=== PATIENT | female | born 1940 | race Caucasian/White ===

== ENCOUNTER 2023-09-18 13:31 | Inpatient (IN) | payer MEDICARE, OTHER, SELFPAY ==
[2023-09-18] VITALS (13 sets, daily range): BP systolic 107–171; BP diastolic 50–72; BMI 25.8
--- NOTE | 2023-09-18 08:38 | W.PN.CARDCBS ---
Addendum entered and electronically signed by Agustín Mueller MD 09/18/23 12:07:
Patient seen and examined
Agree with ELECTRONIC SCALE SUBASSEMBLER note and assessment
Agree with ELECTRONIC SCALE SUBASSEMBLER plan
Since our office visit when she was in rapid atrial fibrillation she is subsequently converted to sinus rhythm on amiodarone therapy as well as bisoprolol therapy and subsequently presented to the [facility] ER with symptomatic bradycardia
with heart rates in the 30s to 40s. We held her amiodarone and bisoprolol and she is continued symptomatic sick sinus syndrome. She was transferred from [facility] for evaluation for a pacemaker. I met with her and her discussing
a warrant of thousand risk of and a 1% risk of pneumothorax, tamponade, infection or bleeding. She is agreeable to proceed and understands that we will postpone her pulmonary vein isolation and place her back on amiodarone therapy and can
follow her clinical course for at least 3 months while her leads heal in.
Examination:
Physical Exam
General: no apparent distress, not acutely ill
Neck: supple. no meningeal signs. normal psoterior pharynx
Heart: s1/s2 regular rate and rhythm, no murmur. equal radial pulses.
Lungs: no acute respiratory distress. clear bilaterally
Abdomen: normal bowel sounds. not tender. no CVAT
Neuro: alert and oriented. no focal neurological deficits
Skin: no rash
Psychiatric: well kept. interactive and cooperative
Extremities: no edema. no calf tenderness. negative homans. good distal pulses
PCP: Diana Sinclair DO
CDY: Luis Alfredo Garcia MD
82 yo WF h/o persistent Afib/Aflutter, moderate MR, HTN, COPD former smoker, CHAD does not tolerate CPAP. She was evaluated by Dr. Mueller 08/09 for ablation vs PPM/AVJ, she had previously failed sotalol (prolonged QTc) and switched to amiodarone with
two failed cardioversions. She chose rhythm management and was scheduled for PFA/PVI in September. She presented to [facility] ER with dizziness, LH and weak, HR sinus in the 30's. She is being transferred today for PPM for tachy-danyelle syndrome.
Impression:
Symptomatic tachycardia-bradycardia syndrome
Bradycardia
Persistent Afib/Aflutter
HTN
HLD
COPD
mild CHAD does not tolerate CPAP
Moderate MR
Breast cancer s/p left mastectomy
former smoker quit 2003
Plan:
Proceed to pacemaker placement
[id number] =4
Currently in SR HR 50's
BP elevated possibly d/t bradycardia, will trend after procedure, continue amlodipine, HCTZ
After PPM will Resume Amiodarone, and bisoprolol
Resume OAC when pocket stable
Plan for now will be medical management, if recurrence of afib will discuss AVJ vs PVI at least 4 weeks from device implant
Inc check at [facility]
continue cardiac care Dr. Garcia
monitor on tele 24 hrs
Original Note:
Today's Communication / Plan
-
PPM today
Impression / Plan
-
This is a summary, see scanned H&P
PCP: Diana Sinclair DO
CDY: Luis Alfredo Garcia MD
82 yo WF h/o persistent Afib/Aflutter, moderate MR, HTN, COPD former smoker, CHAD does not tolerate CPAP. She was evaluated by Dr. Mueller 08/09 for ablation vs PPM/AVJ, she had previously failed sotalol (prolonged QTc) and switched to amiodarone with
two failed cardioversions. She chose rhythm management and was scheduled for PFA/PVI in September. She presented to [facility] ER with dizziness, LH and weak, HR sinus in the 30's. She is being transferred today for PPM for tachy-danyelle syndrome.
Impression:
Symptomatic tachycardia-bradycardia syndrome
Bradycardia
Persistent Afib/Aflutter
HTN
HLD
COPD
mild CHAD does not tolerate CPAP
Moderate MR
Breast cancer s/p left mastectomy
former smoker quit 2003
Plan:
Admit to IVU post PPM
CXR and post op abx
[id number] =4
Currently in SR HR 50's
BP elevated possibly d/t bradycardia, will trend after procedure, continue amlodipine, HCTZ
After PPM will Resume Amiodarone, and bisoprolol
Resume OAC when pocket stable
Plan for now will be medical management, if recurrence of afib will discuss AVJ vs PVI at least 4 weeks from device implant
Inc check at [facility]
continue cardiac care Dr. Garcia
monitor on tele 24 hrs
Progress Note - Dairy Truck Driver
Subjective
Date of Service: September 18, 2023
mild LH, no cp, sob
Physical Exam
Physical Exam
NAD< AOX3
S1, S2, RRR, I/ holosystolic murmur at apex
CTAB, non labored
SNTND BSx4
No LE edema
[2023-09-18] MEDS: NSS 500 IV (09:58)
--- NOTE | 2023-09-18 13:55 | ITS.CL.PACE ---
Water Treatment Technician - Pacemaker Implant
Pacemaker Implant
Procedure Report:
Date of Procedure: September 18, 2023
Patient : 1940
Procedure: Pacemaker Implantation.
Indication: Symptomatic sick sinus syndrome
Referring: Dr. Luis Alfredo Garcia MD
Implants:
Pulse Generator: Medtronic; Model# W1 DR 01; SN: [id number]
RA Lead: Medtronic; Model# 4574; SN: [id number]
RV Lead: Medtronic; Model# 4074; SN: [id number]
Technique: A time out was performed. The procedure site was identified. The patient was anesthetized by the anesthesia service. The patient was prepped and draped in the usual fashion. Local anesthetic was applied to the left prepectoral
subcutaneous tissue. A 3 inch incision was made 2.5 inches below the left clavicle. A subcutaneous pocket was created with blunt and sharp dissection and hemostasis controlled with Bovie cautery. The left axillary vein was accessed within the pocket
without difficulty. Hemostasis was excellent. The leads were introduced with 7 Fr hemostatic peel away introducer sheaths. The ventricular lead was placed at the right ventricular apex. The atrial lead was placed
in the right atrial appendage. 10 volt pacing did not capture the diaphragm. The leads were secured to the pectoralis muscle and fascia. The leads were appropriately attached to the device. The pocket was irrigated with antibiotic solution. The
device and leads were placed in the pocket. The incision was closed in three layers with absorbable suture. The estimated blood loss was minimal. There were no complications.
Fluoroscopy: 2.4 minutes and 12 mGy
Lead Analysis:
RA lead: P: 2.1 mV; Threshold: 0.375 V @ 0.5 ms; Impedance: 680 ohms.
RV lead: R: 6 mV; Threshold: 0.4 V @ 0.5 ms; Impedance: 1070 ohms.
Final Programming: AAIR�DDDR 6130 beats a minute
Conclusion: Uncomplicated Medtronic pacemaker implant. Resume amiodarone and bisoprolol today. Resume Eliquis tomorrow.
Recommendation: Routine post pacemaker care.
--- NOTE | 2023-09-18 15:07 | PTCARENOTE ---
Received patient from PACU after PPM placed left upper chest. Aquacel dressing is dry and intact with immobilizer in place. Patient oriented to room and plan of care. Post EKG done, call michel at the bedside. Remains A paced on the monitor.
--- NOTE | 2023-09-18 15:17 | CM ---
Reviewed chart. Met with Mr. Serna to review discharge plans. He states prior to admission he resides alone in a two story home with three steps to enter He states he has a full flight of steps to get to bedroom. He states he has a full
bathroom on each level. He states prior to admission he ambulates with a single point cane. He states he has a single point cane. He states he has a prescription plan and uses [facility]. Will check his co-pay for Dofetilide. He will need a
three day script for Dofetilde from [facility]. Medical work-up in progress. The discharge plan is to return home when medically stable.
--- NOTE | 2023-09-18 15:33 | CM ---
Reviewed chart. Met with and Mrs. Serna to review discharge plans. She states prior to admission she resides with her spouse in a bi-level home with seven steps to enter from the front door or fourteen steps fromthe garage. She states she
has a one level set-up once inside the home. She states prior to admission she was independent with ambulation and adls. She states she sometime uses a walker when needed. She states she has a prescription plan and uses [facility]. Medical
work-up in progress. The discharge plan is to return home with her spouse when medically stable.
--- NOTE | 2023-09-18 17:03 | PTCARENOTE ---
Patient assisted oob to the bathroom and voided qs. Sitting oob in the chair now, aquacel dressing left upper chest is dry and intact, call michel within reach. Patient is for a chest x-ray.
[2023-09-18] MEDS: ANCEF 5 IV (18:28)
[2023-09-18] MEDS: TYLENOL 650 MG PO (19:51)
[2023-09-18] MEDS: PACERONE 200 MG PO (19:51)
[2023-09-18] MEDS: ZEBETA 2.5 MG PO (19:52)
[2023-09-18] MEDS: RESTASIS 0.05% OPHTHALMIC EMULSION 2 DROPS BOTH EYES (19:52)
--- NOTE | 2023-09-18 20:48 | PTCARENOTE ---
Pt received at start of shift, HR A-paced w/ BBB. L upper chest aquacel CDI, no drainage noted. L arm immobilizer on. pt c/o 06/06 pain at pacer insertion site, tylenol administered, effective - see JUL. Pt appears in high spirits, excited the
procedure is finally done with. Reviewed activity restrictions with pt, pt states understanding. Pt denies any CP (besides at incision), SOB, or lightheadedness/dizziness. Informed to notify RN if any changes, call michel within reach.
[2023-09-18] MEDS: NSS IV (21:42)
[2023-09-18] MEDS: ATIVAN 0.5 MG PO (22:36)
[2023-09-19] MEDS: ANCEF 5 IV (03:18)
[2023-09-19 03:21] VITALS: BP 142/76
[2023-09-19 04:19] LABS: Hematocrit 39.2 % (37.0-47.0); Hemoglobin 13.2 g/dL (12.0-16.0); Mean Corp Hgb Conc. 33.7 g/dL (33.0-37.0); Mean Corpuscular Hgb 32.4 pg (27.0-31.0); Mean Corpuscular Volume 96.3 fL (81.0-99.0); Mean Platelet Volume 12.6 fL (7.4-10.4); Platelet Count 160 10^3/uL (130-400); Red Blood Cell Count 4.07 10^6/uL (4.20-5.40); Red Cell Dist. Width 13.2 % (11.5-14.5); White Blood Cell Count 8.1 10^3/uL (4.8-10.8)
[2023-09-19 04:49] VITALS: BMI 24.9
[2023-09-19 04:55] LABS: Blood Urea Nitrogen 21 mg/dl (7-17); Calcium 9.5 mg/dl (8.4-10.2); Carbon Dioxide 30 mmol/L (22-30); Chloride 101 mmol/L (98-107); Estimated Creatinine Clearance 36 ml/min; Glucose 106 mg/dl (70-99); Magnesium 2.1 mg/dl (1.6-2.3); Potassium 4.2 mmol/L (3.5-5.1); Sodium 135 mmol/L (135-145); eGFR > 60.00
[2023-09-19 07:28] VITALS: BP 157/84
--- NOTE | 2023-09-19 07:48 | W.PN.CARDCBS ---
Addendum entered and electronically signed by Agustín Mueller MD 09/19/23 09:40:
Patient seen and examined
Agree with SAFETY MANAGER note and assessment
Agree with SAFETY MANAGER and plan
Exam:
Site clean dry and intact
Appropriate atrial sensing and pacing and ventricular sensing on telemetry
Cor regular
Lungs clear
Abdomen soft nontender positive bowel sounds
No extremity edema
Alert and x 3
82 yo WF h/o persistent Afib/Aflutter, moderate MR, HTN, COPD former smoker, CHAD does not tolerate CPAP. She was evaluated by Dr. Mueller 08/09 for ablation vs PPM/AVJ, she had previously failed sotalol (prolonged QTc) and switched to amiodarone with
two failed cardioversions. She chose rhythm management and was scheduled for PFA/PVI in September. She presented to [facility] ER with dizziness, LH and weak, HR sinus in the 30's.
Transferred for DC PPM implant.
IMPRESSION
Symptomatic tachycardia-bradycardia syndrome
s/p DC PPM implant, 09/17/22
Persistent Afib/Aflutter
HTN
HLD
COPD
mild CHAD does not tolerate CPAP
Moderate MR
Breast cancer s/p left mastectomy
former smoker quit 2003
PLAN:
Tele- APaced 60s, 5bt NSVT
Post CXR w/stable lead position, no pneumothorax
Tylenol for incisional pain but site looks good
[id number] =4- resume eliquis this morning
Increase amiodarone to 200mg BID for 2 weeks, then back down to daily
Plan will be medical management, if recurrence of Afib will discuss AVJ vs PVI at least 4 weeks from device implant
Incision check at [facility], follow with Dr. Garcia thereafter
Original Note:
Today's Communication / Plan
-
Resume eliquis today
increase amio to BID for 2 weeks, then decrease to 200 daily
Incision check next week
Impression / Plan
-
PCP: Diana Sinclair,
CDY: Luis Alfredo Garcia MD
82 yo WF h/o persistent Afib/Aflutter, moderate MR, HTN, COPD former smoker, CHAD does not tolerate CPAP. She was evaluated by Dr. Mueller 08/09 for ablation vs PPM/AVJ, she had previously failed sotalol (prolonged QTc) and switched to amiodarone with
two failed cardioversions. She chose rhythm management and was scheduled for PFA/PVI in September. She presented to [facility] ER with dizziness, LH and weak, HR sinus in the 30's.
Transferred for DC PPM implant.
IMPRESSION
Symptomatic tachycardia-bradycardia syndrome
s/p DC PPM implant, 09/17/22
Persistent Afib/Aflutter
HTN
HLD
COPD
mild CHAD does not tolerate CPAP
Moderate MR
Breast cancer s/p left mastectomy
former smoker quit 2003
PLAN:
Tele- APaced 60s, 5bt NSVT
Post CXR w/stable lead position, no pneumothorax
Tylenol for incisional pain but site looks good
[id number] =4- resume eliquis this morning
Increase amiodarone to 200mg BID for 2 weeks, then back down to daily
Plan will be medical management, if recurrence of Afib will discuss AVJ vs PVI at least 4 weeks from device implant
Incision check at [facility], follow with Dr. Garcia thereafter
Progress Note - Technical Producer
Subjective
Date of Service: September 19, 2023
Denies cp/palps/dyspnea
mild incisional pain relieved with tylenol
oob ambulating
Objective
Labs:
09/19/23 03:43
09/19/23 03:43
Labs
Hgb 13.2 g/dL (12.0-16.0) 09/19/23 03:43
Hct 39.2 % (37.0-47.0) 09/19/23 03:43
Plt Count 160 10^3/uL (130-400) 09/19/23 03:43
Sodium 135 mmol/L (135-145) 09/19/23 03:43
Potassium 4.2 mmol/L (3.5-5.1) 09/19/23 03:43
BUN 21 mg/dl (7-17) H 09/19/23 03:43
Creatinine 0.9 mg/dL (0.6-1.0) 09/19/23 03:43
Glucose 106 mg/dl (70-99) H 09/19/23 03:43
Vital Signs and I&O:
Vital Signs
Temp Pulse Resp BP Pulse Ox
98 F 60 18 157/84 98
09/19/23 07:28 09/19/23 07:45 09/19/23 07:28 09/19/23 07:28 09/19/23 07:28
Vital Signs
Temp Pulse Resp BP Pulse Ox
98 F 60 18 157/84 98
09/19/23 07:28 09/19/23 07:45 09/19/23 07:28 09/19/23 07:28 09/19/23 07:28
Intake & Output
09/17/23 09/18/23 09/19/23 09/20/23
06:59 06:59 06:59 06:59
Intake Total 760 / 760
Balance 760 / 760
Physical Exam
Physical Exam
AAOx3, MAEE 5/5
RRR S1 S2 no murmurs
CTA bilat, non labored
left acw aquacel CDI, no ht/bleeding
soft abd, + bs
bilat extremities w/palpable distal pulses, no edema
[2023-09-19] MEDS: NORVASC 2.5 MG PO (08:27)
[2023-09-19] MEDS: RESTASIS 0.05% OPHTHALMIC EMULSION 1 DROPS BOTH EYES (08:27)
[2023-09-19] MEDS: PACERONE 200 MG PO (08:27)
[2023-09-19] MEDS: ORETIC 25 MG PO (08:27)
[2023-09-19] MEDS: ZEBETA 2.5 MG PO (08:28)
[2023-09-19] MEDS: TYLENOL 650 MG PO (08:31)
[2023-09-19] MEDS: ELIQUIS 5 MG PO (09:33)
--- NOTE | 2023-09-19 09:56 | PTCARENOTE ---
Patient seen by cardiology this morning and is ok for discharge home. Aquacel dressing left upper chest is dry and intact, immobilizer removed and reinforced post pacer activity restrictions with the patient. Joseph restarted this AM as ordered.
--- NOTE | 2023-09-19 10:28 | W.DS.TRANS ---
DC Summary - Pediatric Physician
-
Discharge Instructions:
Discharge Diagnosis/Procedures Pacemaker implant
Diet Low Cholesterol
Driving Restrictions No driving for 1 week
Bathing Restrictions OK to Shower
Instructions:
Stand-Alone Forms: DC Inst - Implanted Device
Changes to Home Medications: Yes
Discharge Medications:
DC Medications w/original date entered in [employer]
amiodarone 200 mg tablet 200 mg PO DAILY Arrhythmia 09/10/23
amlodipine 2.5 mg tablet 2.5 mg PO DAILY Blood Pressure 09/10/23
apixaban 5 mg tablet (Eliquis) 5 mg PO BID Blood Clot Prevention/Tx 09/10/23
bisoprolol fumarate 5 mg tablet 2.5 mg PO BID Blood Pressure 09/10/23
calcium citrate 250 mg calcium-vitamin D3 5 mcg (200 unit) tablet 1 tab PO DAILY Supplement 09/10/23
coenzyme Q10 100 mg capsule (CoQ-10) 100 mg PO DAILY Supplement 09/10/23
cyclosporine 0.05 % eye drops 1 drp BOTH EYES BID Eye Condition 09/10/23
hydrochlorothiazide 25 mg tablet 25 mg PO DAILY Fluid Retention/Swelling 09/10/23
multivitamin 1 tab PO DAILY Supplement 09/10/23
rosuvastatin 20 mg tablet 20 mg PO DAILY High Cholesterol 09/10/23
acetaminophen 325 mg tablet (Tylenol) 650 mg PO Q6HPRN PRN sciatica on rt side 09/18/23
loratadine 10 mg tablet (Claritin) 10 mg PO DAILYPRN PRN allergies 09/18/23
lorazepam 0.5 mg tablet 0.5 mg PO DAILYPRN PRN anxiety 09/18/23
Home Medication Changes
DOSE INCREASE: Amiodarone to BID for 2 weeks, then decrease to daily
Pending Results: No
--- NOTE | 2023-09-19 10:32 | PTCARENOTE ---
Reviewed discharge instructions in detail with the patient and her and they state their understanding. Aware of medication changes that were made. Patient discharged home with her .
== END 2023-09-19 10:43 | disposition home or self-care (01) | DRG 243 ==
LOC: IVU 13:31
PROVIDERS: Nurse Practitioner Adult Health; ADMITTING PHYSICIAN Internal Medicine Cardiovascular Disease; REFERRING PHYSICIAN Internal Medicine
PROC: 02H63JZ Insertion of Pacemaker Lead into Right Atrium, Percutaneous Approach (ICD-10-PCS; 2023-09-18)
PROC: 02HK3JZ Insertion of Pacemaker Lead into Right Ventricle, Percutaneous Approach (ICD-10-PCS; 2023-09-18)
PROC: 0JH606Z Insertion of Pacemaker, Dual Chamber into Chest Subcutaneous Tissue and Fascia, Open Approach (ICD-10-PCS; 2023-09-18)
DX: I49.5 Sick sinus syndrome (principal); I48.19 Other persistent atrial fibrillation; I48.92 Unspecified atrial flutter; I10 Essential (primary) hypertension; E78.5 Hyperlipidemia, unspecified; J44.9 Chronic obstructive pulmonary disease, unspecified; G47.33 Obstructive sleep apnea (adult) (pediatric); I34.0 Nonrheumatic mitral (valve) insufficiency; Z79.01 Long term (current) use of anticoagulants; Z79.899 Other long term (current) drug therapy; Z85.3 Personal history of malignant neoplasm of breast; Z87.891 Personal history of nicotine dependence
CPT/HCPCS: 33208; 71045; 80048; 83735; 85027; 93005; C1785; C1892; C1898; Q9967